=== PATIENT | female | born 1995 | race Caucasian/White ===

== ENCOUNTER 2018-07-27 06:28 | Emergency (ER) | payer OTHER, MEDICAID | END 2018-07-27 07:31 | disposition home or self-care (01) | LOC: FTE 06:28 | DX: R05 Cough (principal) | CPT/HCPCS: 71045; 99283-25 ==

== ENCOUNTER 2018-08-09 08:12 | Emergency (ER) | payer OTHER ==
[2018-08-09] MEDS: KETOROLAC 30 MG INJ IV (09:02)
[2018-08-09] MEDS: DIPHENHYDRAMINE 50 MG INJ IV (09:02)
[2018-08-09] MEDS: SOD CHLORIDE 0.9% 1,000 ML IV (09:02)
[2018-08-09] MEDS: ONDANSETRON 4 MG INJ IV (09:02)
[2018-08-09 09:27] LABS: ADD UMIC NO; UR ASCORBIC ACID NEGATIVE (NEGATIVE); UR BILIRUBIN (Dip) NEGATIVE (NEGATIVE); UR BLOOD (Dip) NEGATIVE (NEGATIVE); UR CLARITY CLEAR (CLEAR); UR COLOR STRAW (YELLOW); UR GLUCOSE (Dip) NEGATIVE (NEGATIVE); UR KETONES (Dip) 2+ mg/dL (NEGATIVE); UR LEUKOCYTE ESTERASE (Dip) NEGATIVE Leu/ul (NEGATIVE); UR NITRITE (Dip) NEGATIVE (NEGATIVE); UR SPECIFIC GRAVITY (Dip) 1.012 (1.003-1.030); UR TOTAL PROTEIN (Dip) NEGATIVE (NEGATIVE); UR UROBILINOGEN (Dip) NEGATIVE (NEGATIVE)
== END 2018-08-09 10:15 | disposition home or self-care (01) ==
LOC: FTE 08:12
DX: R51 Headache (principal)
CPT/HCPCS: 70450; 81003; 81025; 96374; 96375; 99285-25

== ENCOUNTER 2018-08-14 14:36 | Emergency (ER) | payer OTHER ==
[2018-08-14] MEDS: ONDANSETRON (ODT) 4 MG TAB ODT (16:01)
[2018-08-14] MEDS: HYDROCODONE/APAP (5/325) TAB PO (16:02)
[2018-08-14] MEDS: KETOROLAC 60 MG INJ IM (16:02)
== END 2018-08-14 17:02 | disposition home or self-care (01) ==
LOC: FTE 14:36
DX: R51 Headache (principal)
CPT/HCPCS: 81025; 96372; 99284-25

== ENCOUNTER 2018-10-18 21:57 | Emergency (ER) | payer OTHER | END 2018-10-18 23:22 | disposition home or self-care (01) | LOC: E/R 21:57 | DX: R07.89 Other chest pain (principal) | CPT/HCPCS: 93005; 99283-25 ==